=== PATIENT | female | born 1965 | race Caucasian/White ===

== ENCOUNTER → 2016-11-25 | Day surgery (SDC) | payer OTHER ==
--- NOTE | 2016-11-22 13:02 | History & Physical Pre-Op ---
General Information and HPI History of Present Illness: Malathi is a 51-year-old female with a long-standing and worsening complaint of arthritis to her right great toe and a painful tailor's bunion right foot. The patient has undergone an extended course of conservative care, including shoe gear and activity modification, rest, immobilization and courses of NSAIDs. None of this is yielded her any significant relief. The patient presents today for preoperative surgical consultation. Allergies/Medications Allergies: Coded Allergies: No Known Allergies (11/19/16) Home Med list Simvastatin (Simvastatin*) 10 MG TABLET 1 TAB PO QPM CHOLESTEROL (Reported) Past History Medical History Cardiovascular: hyperlipidemia Surgical History Pertinent Surgical History: Review of Systems Review of Systems: Review of systems unremarkable except for that noted history of present illness Exam & Diagnostic Data Physical Exam: Lungs clear bilaterally. Heart sounds rate and rhythm regular. Lower extremity physical exam demonstrates intact pedal pulses bilaterally. Pulses dorsalis pedis and posterior tibial arteries are palpable bilaterally. Patient without any sensory motor deficits. Deep tendon reflexes grossly intact. Patient noted to have significant pain with palpation or range of motion through the right first metatarsophalangeal joint. The range of motion is noted to be respect restricted, especially in dorsiflexion. Patient is also noted to have pain with palpation range of motion through the right fifth metatarsophalangeal joint. Assessment/Plan Assessment/Plan: Hallux limitus and tailor's bunion right foot. A lengthy discussion reviewing both surgical and conservative options was held the patient at bedside and the patient elects to go forward with surgery despite the risks. As Ranked By This Provider Problem List: 1. Hallux rigidus of right foot Attending MD Review Statement Attending Statement Attending MD Statement: examined this patient
[~2016-11-25] VITALS: Ht 127 cm; Wt 78.0 kg
[~2016-11-25] MED LIST: SIMVASTATIN10 M1 PO
--- NOTE | 2016-11-25 10:57 | Operative Report ---
Operative/Inv Procedure Report Surgery Date: 11/25/16 Name of Procedure: 1 silver bunionectomy right foot 2 tailor's bunionectomy right foot 3 intraoperative administration of ankle block anesthesia Pre-Operative Diagnosis: 1 hallux limitus right foot 2 tailor's bunion right foot Post-Operative Diagnosis: The same Estimated Blood Loss: scant Surgeon/Business Information Manager: KAREEM GARG DPM Anesthesia: moderate sedation, block Operative/Procedure Note Note: After obtaining informed consent the patient was brought to the operating room and placed on the operating table in the supine position. The patient isn't securely fastened to the operating table utilizing safety belt. After administration of IV sedation, 10 mL of 0.5% Marcaine plain was infiltrated about the patient's right ankle. A well-padded ankle tourniquet was placed about the patient's right lower extremity. 2 g of Ancef were delivered intravenously times one dose. The right foot and ankle within scrubbed prepped and draped in usual aseptic manner. He was elevated to exsanguinate the limb, at which point the ankle tourniquet was inflated 250 mmHg. Attention directed dorsal aspect of the right foot, where 6 cm linear incision was made just medial to the course of the extensor listless longus tendon. The skin was incised with 15 blade and deepened subtenons tissues. All vital neurovascular structures were identified protected. A linear capsulotomy was then performed exposing the medial eminence with significant dorsal lateral exostoses. These were then removed with a sagittal bone saw. The wound was then irrigated with copious amounts of normal sterile saline. The capsular structures were reapproximated with 3-0 Vicryl. The septae is tissues reapproximated 4-0 Vicryl and the skin edges reapproximated 4-0 Monocryl. Attention was then directed to the lateral foot, where a 4 cm linear incision was made overlying the fifth metatarsophalangeal joint. The skin was incised with 15 blade and deepened subtenons tissues. A linear capsulotomy was performed exposing the lateral eminence. This was then removed a sagittal bone saw. The wound was irrigated with normal sterile saline. The capture structures were reapproximated with 4-0 Vicryl. The septae is tissues reapproximated 4-0 Vicryl and the skin edges reapproximated 4-0 nylon. The incisions were then dressed with Steri-Strips Xeroform 4 x 4's Kerlix and an Agustin wrap. The patient was noted to tolerate both procedure and anesthesia well and the patient was transported from the operating room to recovery with vital signs stable best assess intact all digits right foot.
== END ==
LOC: STS 01:37
DX: M20.5X1 Other deformities of toe(s) (acquired), right foot (principal); M20.21 Hallux rigidus, right foot; M21.621 Bunionette of right foot; E78.5 Hyperlipidemia, unspecified
CPT/HCPCS: 81025; 88304; J0690; J2001; J2250